=== PATIENT | male | born 1945 | race Caucasian/White ===

== ENCOUNTER 2018-05-06 08:16 | Outpatient (CLI) | payer OTHER ==
--- NOTE | 2018-05-06 11:23 | MRI ---
MRI CERVICAL SPINE WITHOUT CONTRAST: Date: 05/06/18 HISTORY: Cervical radiculopathy. Neck pain going down the left side for several months. COMPARISON: None. FINDINGS: There is heterogeneous marrow signal intensity on the T1-weighted images suggesting senescent change. Type II Modic changes at C5-C6. No significant STIR hyperintensity to suggest vertebral body edema or ligamentous injury. Visualized brain parenchyma, cervicomedullary junction, cervical cord, and the upper thoracic cord sandoval ve a normal size and signal intensity. C2-C3: No significant disc osteophyte complex. No significant central canal stenosis. Foramina are p atent. C3-C4: No significant disc osteophyte complex. No significant central canal stenosis. Neural foramin a are patent. C4-C5: Mild loss of disc space height. Generalized disc bulge without any significant central canal stenosis. There are degenerative changes in bilateral uncovertebral joints with severe right and mode rate left foraminal narrowing. C5-C6: Severe loss of disc space height. There is a broad based disc bulge without any significant s tenosis upon the thecal sac. Moderate bilateral foraminal narrowing. C6-C7: Desiccation with mild loss of disc space height. No significant central canal stenosis. Mild to moderate bilateral foraminal narrowing. C7-T1: No significant central canal stenosis or foraminal narrowing. IMPRESSION: Degenerative changes of the cervical spine as above. POS: BONI
--- NOTE | 2018-05-06 12:17 | MRI ---
MRI OF THE THORACIC SPINE WITHOUT CONTRAST: History: Thoracic lymphadenopathy. Back pain x several months radiating down the left side. Comparison: None. Technique: MRI of the thoracic spine was performed without intravenous gadolinium administration. Mul tiplanar, multisequence MRI images were obtained. FINDINGS: Overall there is a appropriate T1 marrow signal intensity of the thoracic vertebrae. Thoracic spine i ntervertebral body height is maintained and there is no evidence of fracture. Minimal heterogeneity o f the thoracic spine due to senescant change. There is T1 hypointensity with associated T2 and STIR h yperintensity involving the inferior endplate of T7 and the superior endplate of T8 compatible with t ype II Modic change. There is a small amount of edema along the posterior aspect of the disc, likely due to degenerative change. Visualized mediastinal structures, lung parenchyma unremarkable. There are two separate T2 hyperinten se lesions projecting over the right kidney, presumed to be cysts. Confirmation with non-emergent ult rasound. Cord has an overall normal size and signal intensity. No cord expansion. No cord myelomalacia. Conus medullaris terminates at the inferior aspect of T12. Small lipoma noted on the posterior left paraspinal subcutaneous fat at approximately the T7 level. From T1-2 through T6-7: No significant central canal stenosis. T7-T8: Central disc protrusion. Ventral subarachnoid space is effaced. Deformity of the thoracic cor d. Mild central canal stenosis. T8-9 through T11-12: No significant central canal stenosis. No posterior disc abnormality. Neural foramina are patent throughout the thoracic spine. IMPRESSION: Degenerative disc disease at T7-8. POS: BONI
== END 2018-05-06 08:17 | disposition home or self-care (01) ==
LOC: TBSIIMAG 08:16
PROVIDERS: ATTEND Neurological Surgery
DX: M51.14 Intervertebral disc disorders with radiculopathy, thoracic region (principal); M47.22 Other spondylosis with radiculopathy, cervical region
CPT/HCPCS: 72141; 72146

== ENCOUNTER 2018-05-26 14:48 | Outpatient (CLI) | payer OTHER ==
[2018-05-26 16:36] LABS: Hemoglobin 14.5 g/dL (14.0-18.0); Mean Corpuscular HGB CONC 32.5 g/dL (32.0-36.0); Mean Corpuscular Hemoglobin 30.1 pg (27.0-31.0); Mean Corpuscular Volume 92.4 fL (78.0-98.0); Mean Platelet Volume 8.2 fL (7.4-10.4); Platelet Count 210 thou/uL (130-400); RBC Distribution Width 11.4 % (11.5-14.5); Red Blood Cell (RBC) Count 4.81 mill/uL (4.70-6.10); White Blood Cell (WBC) Count 6.5 thou/uL (4.8-10.8)
[2018-05-26 16:52] LABS: Anion Gap 13 mmol/L (10-20); BUN (Urea Nitrogen) 23 mg/dL (8.4-25.7); Calc. Creatinine Clearance 0 mL/min (70-130); Calcium 9.8 mg/dL (7.8-10.44); Carbon Dioxide 26 mmol/L (23-31); Chloride 107 mmol/L (98-107); Estimated GFR-MDRD 46; Glucose 88 mg/dL (80-115); Potassium 4.3 mmol/L (3.5-5.1); Sodium 142 mmol/L (136-145)
--- NOTE | 2018-05-27 12:37 | EKG ---
Test Reason : Blood Pressure : / mmHG Vent. Rate : 069 BPM Atrial Rate : 069 BPM P-R Int : 166 ms QRS Dur : 120 ms QT Int : 440 ms P-R-T Axes : 033 -08 -03 degrees QTc Int : 471 ms Normal sinus rhythm Non-specific intra-ventricular conduction delay Nonspecific ST-T changes No previous ECGs available Confirmed by DR. Leandro ROMERO ([id number]) on 05/27/2018 12:36:37 PM Referred By: TATA Confirmed By:DR. Leandro ROMERO
== END 2018-05-26 14:49 | disposition home or self-care (01) ==
LOC: LABBT 14:48
PROVIDERS: ATTEND Neurological Surgery
DX: Z01.818 Encounter for other preprocedural examination (principal); M54.16 Radiculopathy, lumbar region
CPT/HCPCS: 80048; 85027; 93005; 93010

== ENCOUNTER 2018-05-27 08:01 | Day surgery (SDC) | payer OTHER ==
[2018-05-26 15:12] VITALS: BMI 25.1
[2018-05-27] MEDS ORDERED: CEFAZOLIN 2 GM/50 ML BAG ONE (10:09)
[2018-05-27] MEDS ORDERED: Fentanyl 100 MCG/2 ML VIAL ONE (10:28)
--- NOTE | 2018-05-27 11:49 | OP ---
DATE OF PROCEDURE: 05/27/2018 SURGEON: Tre Malone M.D. SPINNING OPERATOR: Judi Ocasio PA-C. PROCEDURE: L3-L4 laminectomy. PROCEDURE IN DETAIL: The patient was brought into the operating room and intubated. He was rolled i n the prone position on gel-filled chest rolls. Incision made exposing L3 and L4 and our level was c onfirmed by x-ray. We performed complete L4 and inferior L3 laminectomies and turned our attention t o the left and a complete lateral recess decompression of the L3-L4 was achieved. The wound was then extensively irrigated. Immaculate hemostasis was secured. Vancomycin powder was applied and the wo und was closed in anatomic layers.
[2018-05-27] MEDS ORDERED: Tamsulosin HCl 0.4 MG CAP ONE (15:02)
== END 2018-05-27 16:03 | disposition home or self-care (01) ==
LOC: SDC 08:01
PROVIDERS: ATTEND Neurological Surgery
PROC: 00NY0ZZ Release Lumbar Spinal Cord, Open Approach (ICD-10-PCS; principal; 2018-05-27)
DX: M54.16 Radiculopathy, lumbar region (principal); M48.061 Spinal stenosis, lumbar region without neurogenic claudication; E78.5 Hyperlipidemia, unspecified; Z79.899 Other long term (current) drug therapy
CPT/HCPCS: 51798; 76001; J0131; J3010; J3370